=== PATIENT | male | born 1960 | race Caucasian/White ===

== ENCOUNTER → 2024-09-10 08:36 | Outpatient (REF) | payer MEDICARE, OTHER, SELFPAY | LOC: MRI 3T 08:36 | PROVIDERS: ATTENDING PHYSICIAN Urology; FAMILY PHYSICIAN Family Medicine | DX: R97.20 Elevated prostate specific antigen [PSA] (principal) | CPT/HCPCS: 72197; A9575 ==

== ENCOUNTER → 2024-11-09 08:03 | Outpatient (REF) | payer MEDICARE, OTHER, SELFPAY | LOC: HWEVLT 08:03 | PROVIDERS: ATTENDING PHYSICIAN Radiology Vascular & Interventional Radiology | DX: I83.891 Varicose veins of right lower extremity with other complications (principal) | CPT/HCPCS: 93971 ==